=== PATIENT | male | born 1940 | race Caucasian/White ===

== ENCOUNTER → 2016-10-31 | Outpatient (CLI) | payer MEDICARE, OTHER ==
--- NOTE | 2016-10-31 19:55 | REP ---
RIGHT WRIST SERIES: Four views of the right wrist are performed. There is no acute fracture or dislocation. There is mild radiocarpal joint space narrowing as well as mild narrowing at the joint between the scaphoid and trapezium and trapezium and base of first metacarpal. IMPRESSION: Mild degenerative changes. No acute fracture or dislocation. Signed by Olman Craig MD 10/31/2016 07:58 P
--- NOTE | 2016-10-31 19:57 | REP ---
RIGHT HAND SERIES: Four views of the right hand are performed. There is no acute fracture or dislocation. There is mild joint space narrowing at the radiocarpal joint as well as at the joint between the trapezium and base of the first metacarpal. There is moderate narrowing at the first metacarpophalangeal joint. There is mild diffuse narrowing of the distal interphalangeal joints. IMPRESSION: Mild degenerative changes. No fracture or dislocation. Signed by Olman Craig MD 10/31/2016 07:58 P
== END ==
LOC: M WUC 17:16
PROVIDERS: ATTEND Physician Assistant
DX: S60.211A Contusion of right wrist, initial encounter (principal); X58.XXXA Exposure to other specified factors, initial encounter; Y92.89 Other specified places as the place of occurrence of the external cause; Y93.89 Activity, other specified; Y99.8 Other external cause status

== ENCOUNTER 2020-11-06 16:13 | Emergency (ER) | payer MEDICARE ==
[~2020-11-06] VITALS: Ht 177.8 cm; Wt 78.2 kg
[2020-11-06] MEDS ORDERED: ASPI-1 PO (16:59)
[2020-11-06] MEDS ORDERED: ASPIRIN 81 MG CHEW TABLET PO ONE (17:25)
--- NOTE | 2020-11-06 17:39 | REP ---
INDICATION: CHEST PAIN. COMPARISON: No comparison study. TECHNIQUE: Portable upright AP chest radiograph. FINDINGS: The lungs are well inflated and free of infiltrate. EKG monitoring electrodes overlie the chest. The pleural angles are sharp. Heart size is borderline. The thoracic aorta is tortuous. There are old healed rib fractures on the left posteriorly and a old healed left clavicle fracture is seen. There are degenerative changes in the shoulders. IMPRESSION: Borderline heart size. Otherwise no acute disease. Multiple old left-sided rib fractures and old left clavicle fracture. <Electronically signed by Benjamin Cm > 11/06/20 [id number]
[2020-11-06 17:48] VITALS: BP 162/89
[2020-11-06 17:58] LABS: BASO # 0.1 10^3/uL (0.0-0.2); BASO % 0.8 % (0.0-1.0); EOS # 0.1 10^3/uL (0.0-0.5); EOS % 1.5 % (0.0-3.0); HEMATOCRIT 43.5 % (42.0-52.0); HEMOGLOBIN 14.6 g/dl (13.5-17.5); LYMPH # 1.2 10^3/uL (1.5-5.0); LYMPH % 16.1 % (24.0-44.0); MEAN CORPUSCULAR HEMOGLOBIN 31.7 pg (27.0-33.0); MEAN CORPUSCULAR HGB CONC 33.6 g/dl (32.0-36.5); MEAN CORPUSCULAR VOLUME 94.4 fl (80.0-96.0); MONO # 0.6 10^3/uL (0.0-0.8); MONO % 8.7 % (2.0-8.0); NEUTROPHILS # 5.3 10^3/uL (1.5-8.5); NEUTROPHILS % 72.5 % (36.0-66.0); PLATELET COUNT, AUTOMATED 182 10^3/uL (150-450); RED BLOOD COUNT 4.61 10^6/uL (4.30-6.10); WHITE BLOOD COUNT 7.3 10^3/uL (4.0-10.0)
[2020-11-06 18:30] VITALS: BP 153/71
[2020-11-06 18:30] LABS: ALBUMIN 3.8 GM/DL (3.2-5.2); ALT/SGPT 20 U/L (12-78); BILIRUBIN,DIRECT 0.1 MG/DL (0.0-0.2); BILIRUBIN,TOTAL 0.3 MG/DL (0.2-1.0); BLOOD UREA NITROGEN 20 MG/DL (7-18); CALCIUM LEVEL 8.9 MG/DL (8.8-10.2); CARBON DIOXIDE LEVEL 26 MEQ/L (21-32); CHLORIDE LEVEL 105 MEQ/L (98-107); CK-MB VALUE MASS 5.1 NG/ML (<3.6); CPK CREATINE PHOSPHOKINASE 166 U/L (39-308); CREATININE FOR GFR 0.82 MG/DL (0.70-1.30); FREE T4 0.87 NG/DL (0.76-1.46); GLOMERULAR FILTRATION RATE > 60.0 (>42); GLUCOSE, FASTING 89 MG/DL (70-100); MB/CK RELATIVE INDEX 3.07 (< OR =4); POTASSIUM SERUM 4.2 MEQ/L (3.5-5.1); SODIUM LEVEL 138 MEQ/L (136-145); TOTAL PROTEIN 6.6 GM/DL (6.4-8.2); TROPONIN I < 0.02 NG/ML (< 0.10)
[2020-11-06 18:36] LABS: INR 0.98; PROTHROMBIN TIME 13.4 SECONDS (12.7-14.5)
[2020-11-06] MEDS ORDERED: LISI10TA22 PO (18:59)
--- NOTE | 2020-11-08 07:31 | ECGEPIP ---
[facility] - ED Test Date: 2020-11-06 Pat Name: NEGAR GALARZA Department: Room: - Gender: Male [employer]ant: CAMELIA : 1940 Requested By: DARIUSZ VYAS Order Number: [id number] Reading MD: Jeanne Matamoros Measurements Intervals [place] Rate: 59 P: 34 WV: 214 QRS: -29 QRSD: 84 T: 10 QT: 418 QTc: 413 Interpretive Statements Sinus bradycardia with 1st degree AV block Possible Left atrial enlargement Left ventricular hypertrophy ( R in aVL , Sokolow-Tellez , Avni product , Romhilt-Momin ) Nonspecific ST and T wave abnormality No prior Electronically Signed on 11-08-2020 7:31:36 EDT by Jeanne Matamoros
== END 2020-11-06 19:54 | disposition home or self-care (01) ==
LOC: M ED 16:13
DX: I10 Essential (primary) hypertension (principal); I49.9 Cardiac arrhythmia, unspecified; Z87.81 Personal history of (healed) traumatic fracture; Z79.82 Long term (current) use of aspirin; Z79.899 Other long term (current) drug therapy